=== PATIENT | female | born 1960 | race Caucasian/White ===

== ENCOUNTER 2022-10-05 11:43 | Outpatient (CLI) | payer OTHER | END 2022-10-05 11:44 | disposition home or self-care (01) | LOC: CSHMAMMO 11:43 | PROVIDERS: ATTEND Family Medicine | DX: Z12.31 Encounter for screening mammogram for malignant neoplasm of breast (principal) | CPT/HCPCS: 77063; 77067 ==

== ENCOUNTER 2023-11-10 12:56 | Outpatient (CLI) | payer OTHER | END 2023-11-10 12:57 | disposition home or self-care (01) | LOC: CSHMAMMO 12:56 | PROVIDERS: ATTEND Student in an Organized Health Care Education/Training Program | DX: Z12.31 Encounter for screening mammogram for malignant neoplasm of breast (principal) | CPT/HCPCS: 77063; 77067 ==

== ENCOUNTER 2023-12-07 10:37 | Outpatient (CLI) | payer OTHER ==
[~2023-12-07 10:37] MED LIST: Iopamidol 300 61% 100 ML VIAL FS ONE
== END 2023-12-07 10:38 | disposition home or self-care (01) ==
LOC: CSHRAD 10:37
PROVIDERS: ATTEND Student in an Organized Health Care Education/Training Program
DX: E27.8 Other specified disorders of adrenal gland (principal)
CPT/HCPCS: 74170; 82565